=== PATIENT | female | born 1935 | race Caucasian/White ===

== ENCOUNTER → 2020-11-12 | Outpatient (CLI) | payer MEDICARE ==
--- NOTE | 2020-11-12 13:49 | KCIC ---
EXAMINATION: Magnetic resonance imaging (MRI) of the cervical spine without contrast 11/12/2020 12:40 PM HISTORY: Cervicalgia. Chronic neck pain and crepitus for years. TECHNIQUE: Multiplanar multi-weighted MRI of the cervical spine was performed without intravenous con trast using the standard cervical spine protocol. Contrast information: None administered COMPARISON: None available. FINDINGS: There is a 2 mm anterolisthesis of C3 on C4 and C4 on C5. 4 mm retrolisthesis of C5 on C6. Moderate d isc height loss at C5-C6 and C6-C7. Vertebral body heights are maintained. There is marrow edema invo lving the dens which is nonspecific. No definite acute fracture is identified, although CT may be mor e sensitive in evaluation for fractures. Cervical spinal cord signal intensity is normal in all seque nces. Disc desiccation is identified at all levels of the cervical spine. Posterior fossa is normal i n appearance. Vertebral artery flow voids are maintained. Brainstem is intact. No prevertebral edema. No paraspinal soft tissue abnormality. C2-C3: Disc is normal in configuration. Mild facet arthropathy. No neuroforaminal or spinal canal harriett nosis. C3-C4: Mild disc bulge. Mild facet arthropathy. Mild bilateral neuroforaminal stenosis. No spinal can al stenosis. C4-C5: There is a posterior disc osteophyte complex with right central disc extrusion. There is moder ate right and mild left facet arthropathy. Moderate uncovertebral joint disease. Moderate to severe r ight and mild left neuroforaminal stenosis. Mild spinal canal stenosis with minimal deformity of the ventral cord. No cord signal alteration. C5-C6: There is a posterior disc osteophyte complex with right central disc extrusion. Mild facet art hropathy. Moderate right and moderate to severe left uncovertebral joint disease. Moderate left and m ild right neuroforaminal stenosis. Moderate spinal canal stenosis, exacerbated by ligamentum flavum i nfolding. C6-C7: There is a posterior disc osteophyte complex. Mild facet arthropathy. Moderate uncovertebral j oint disease. Moderate left and mild right neuroforaminal stenosis. Mild spinal canal stenosis. C7-T1: Disc is normal in configuration. No neuroforaminal or spinal canal stenosis. IMPRESSION: Moderate degenerative changes of the cervical spine as described in detail above. Edema is noted involving the dens which can be secondary degenerative arthropathy. However, CT may be more sensitive for detection of fractures and further evaluation with CT cervical spine without cont rast is recommended. Electronically signed by: Cathleen Tovar MD (11/12/2020 1:47 PM) [facility]
== END ==
LOC: KCIC MRI 12:25
PROVIDERS: ATTEND Physician Assistant
DX: M47.812 Spondylosis without myelopathy or radiculopathy, cervical region (principal); M48.02 Spinal stenosis, cervical region; M43.12 Spondylolisthesis, cervical region; M50.221 Other cervical disc displacement at C4-C5 level; M50.222 Other cervical disc displacement at C5-C6 level; M25.78 Osteophyte, vertebrae; R60.9 Edema, unspecified
CPT/HCPCS: 72141

== ENCOUNTER → 2020-12-17 | Outpatient (CLI) | payer MEDICARE ==
[~2020-12-17] MED LIST: DIAZ5TAB PO; DIAZ5TAB4 PO
[2020-12-17 10:45] LABS: C-REACTIVE PROTEIN 0.8 mg/L (0-3.3); CALCIUM 9.1 mg/dL (8.5-10.1); CREATININE 1.1 mg/dL (0.6-1.0); GFR 47.1
== END ==
LOC: MRI 09:47
PROVIDERS: ATTEND Nurse Practitioner Family
DX: L53.9 Erythematous condition, unspecified (principal); L98.499 Non-pressure chronic ulcer of skin of other sites with unspecified severity; R93.89 Abnormal findings on diagnostic imaging of other specified body structures
CPT/HCPCS: 36415; 80048; 84134; 85651; 86140

== ENCOUNTER → 2020-12-23 | Outpatient (CLI) | payer MEDICARE ==
[~2020-12-23] MED LIST changes: +GADOTERATE 5 MMOL/10ML VIAL. IVP ONE
--- NOTE | 2020-12-23 14:28 | RAD ---
EXAM: MRI pelvis with and without IV contrast CLINICAL HISTORY: COCCYX NON-HEALING ULCER COMPARISON: None TECHNIQUE: Multiplanar, multisequence MRI imaging of the posterior pelvis/SI joints was performed wit hout IV contrast. FINDINGS: T1 marrow signal is preserved throughout the visualized osseous structures, specifically in the sacru m and coccyx. Soft tissue thickening and edema overlying the sacrococcygeal junction SI joints cortices are well-defined without erosive changes. Posterior pelvis bony structure: Normal bone marrow signal. Negative focal bone marrow replacement. Negative acute or subacute fracture. Negative sacrococcygeal dissociation. Presacral soft tissues: No presacral inflammatory type changes, fluid collection or mass. Additional findings: No free fluid is present in the pelvis. No pelvic lymphadenopathy. IMPRESSION: 1. No MRI evidence for osteomyelitis. 2. Soft tissue ulceration overlying the sacrococcygeal junction. Electronically signed by: Castillo Williamson MD (12/23/2020 2:26 PM) [id number]
== END ==
LOC: MRI 09:35
PROVIDERS: ATTEND Nurse Practitioner Family
DX: L89.159 Pressure ulcer of sacral region, unspecified stage (principal); R93.89 Abnormal findings on diagnostic imaging of other specified body structures
CPT/HCPCS: 72197; A9575